=== PATIENT | female | born 1965 | race Caucasian/White ===

== ENCOUNTER → 2023-10-08 | Outpatient (CLI) | payer OTHER ==
[2023-10-08 11:08] VITALS: BP 162/103; PULSE 88; RESP 16; TEMP 99.1
--- NOTE | 2023-10-08 14:56 | P.PAINPG ---
PQRS Measure Charge Sheet Comment: HISTORY OF PRESENT ILLNESS: A 58 yr old female w [id number] at side as a referral from Dr Estrella presents today w severe and chronic R knee pain > 6 mo secondary to DJD for evaluation. Pt states pain level is provoked at 10 /10 in intensity, constant, localized in the R knee, sharp in character without shooting pain. Pain is provoked by walking. Pain is alleviated by PT x 6 wks which ended September 2023, physician guided exercises every other day starting this month, heat, ice, medications (Aleve), topical Voltaren gel, repositioning and rest. Pt is strongly against receiving injections for chondromalacia, only wants pain medications and states she occasionally uses cannabis. PMH: OA, Hypothyroid Disorder, MDD/ Anxiety/ Bipolar Disorder PSH: Section, Cholecystectomy, Hysterectomy, Ovarian Cystectomy, Tubal Ligation, Bladder Lift, L Knee Partial Arthroplasty, R Knee Arthroscopy SH: Daily tobacco use, No ETOH abuse, Cannabis use FH: Noncontributory All: See list Meds: See list REVIEW OF ORGAN SYSTEMS: CONSTITUTIONAL: No fevers or chills. No recent weight los s. NEUROLOGICAL: + numbness and tingling along the distal extremities. No seizure disorders or headaches. MUSCULOSKELETAL: + pain PSYCHIATRIC: Denies current depression or suicidal thoughts. Physical Examinations : Constitutional : Cooperative , not in acute distress . Neurologic : Cranial nerve II to XII intact. No focal neurological deficits. Psychiatric : alert & oriented x 3. Matching mood & appropriate affect. Judgment & insight intact. Musculoskeletal : Cervical Spine Motor strength in the deltoid and biceps: Normal right side. Normal Left side Motor strength biceps and the wrist ex tensors: Normal right side . Normal left side Motor strength in the triceps muscle: Normal right side. Normal left side Deep tendon reflexes: Normal at the biceps. Normal at Brachioradialis. Normal at triceps Vertebral body tenderness to deep palpation over Cervical facet loading test: positive bilaterally Spurling test: positive bilaterally Neck distraction test: positive bilaterally Viviana sign: positive bilaterally Lumbar spine +R knee lateral pt tenderness, no joint laxity Motor strength lower extremities ,thigh and legs 5/5 Right side , 5/5 Left side Deep tendon reflexes : Normal Knee Jerk. Normal Ankle Jerk Vertebral body tenderness over Osorio Test positive Lumbar facet Loading Test: positive Right / positive Left Range of motion of the lumbar spine Flexion 30 degrees, extension 10 degrees Straight Leg Raise test: Left/ Right positive at degrees Ofe test: positive right / positive left. Severe tenderness over the Sacroiliac joint on the Right / Left sides Gaenslen test: positive bilaterally Seated flexion test: positive bilaterally. Sacral spine : Severe tenderness over the Sacroiliac joint: right side / left side Range of motion: Flexion of the lumbar spine <60 degrees Range of motion: Extension of the lumbar spine <20 degrees Gaenslen's Test positive Ofe test: positive right side / left side Thigh Thrust Test Sacral Thrust Test Imaging: MRI noncontrast of the knee from 06/01/23 reviewed Assessment/ Plan : R knee chondromalacia, R knee partial medial meniscal tear, R small effusion of knee Recommendation of R intraarticular injection, though pt was disinterested. Advised pt stop using cannabis while on short course of [place] 5/325mg #15 NR Use, side effects adverse reactions, safe storage discussed. Pt wants to find another clinic that will have a narcotic agreement with her. All questions a nswered. I have spent greater than 30 minutes on patient care today. Dr Stanley was available by phone for the evaluation of this patient. The time was used to review the medical records including relevant urine studies and Prescription history (MAPs), review of the available imaging, evaluation and examination of the patient, coordination of care with the medical staff and if applicable referring physicians, as well as creation of the medical record - Pain Location Right Knee Non-Pharmacological Interventions: Heat, Ice, Inactivity, Physical Therapy, Position/Reposition Pharmacological Interventions: PRN Medication, Topical Medication PQRS Narrative: Smoking Status Current every day smoker Home Medications: Ambulatory Orders Albuterol Sulfate [Ventolin HFA] 1 - 2 puff INHALATION Q6H PRN 30 Days inhaler 02/26/14 [place]olic Acid 0.4 mg PO DAILY 03/04/14 Docusate [Colace] 100 mg PO DAILY 30 Days cap 03/09/14 Levothyroxine Sodium [Synthroid] 125 mcg PO DAILY@0630 30 Days tablet 03/09/14 [place] Carbonate 300 mg PO DAILY 30 Days cap 03/09/14 [place] Carbonate 600 mg PO HS 30 Days cap 03/09/14 Omeprazole [PriLOSEC] 20 mg PO AC-BRKFST 30 Days capsule. 03/09/14 Prazosin [Minipress] 1 mg PO HS 30 Days cap 03/09/14 Topiramate [Topamax] 100 mg PO BID 30 Days tab 03/09/14 clonazePAM [KlonoPIN] 1 mg PO BID 30 Days tab 03/09/14 risperiDONE [RisperDAL] 2 mg PO HS 30 Days tab 03/09/14 HYDROcodone/APAP 5-325MG [[place] 5-325] 1 tab PO Q4HR PRN 3 Days #15 tab 10/08/23 Controlled Substance Measures - Controlled Substance Measures Is patient prescribed a controlled substance at discharge?: Yes When asked, does pt state using other controlled substances?: No If prescribed controlled substance>3 days was MAPS reviewed?: Prescribed <3 Days
== END ==
LOC: PNWHC3 09:45
PROVIDERS: ATTEND Specialist
DX: S83.241A Other tear of medial meniscus, current injury, right knee, initial encounter (principal); M17.11 Unilateral primary osteoarthritis, right knee; G89.29 Other chronic pain; M94.261 Chondromalacia, right knee; M23.303 Other meniscus derangements, unspecified medial meniscus, right knee; F17.200 Nicotine dependence, unspecified, uncomplicated; Z88.6 Allergy status to analgesic agent; Z88.8 Allergy status to other drugs, medicaments and biological substances; Z88.5 Allergy status to narcotic agent; X58.XXXA Exposure to other specified factors, initial encounter
CPT/HCPCS: 99211

== ENCOUNTER 2024-03-11 07:12 | Emergency (ER) | payer OTHER ==
[2024-03-11 07:17] VITALS: RESP 18; TEMP 97.9
[2024-03-11] MEDS: HYDROmorphone 0.5 MG/0.5 ML SYRINGE IVP STA ×2 (07:44→07:52)
[2024-03-11] MEDS: SODIUM CHLORIDE 0.9% 1,000 ML IV STA (07:48)
[2024-03-11] MEDS: diphenhydrAMINE 50 MG/ML 1 ML VIAL IVP STA (07:49)
[2024-03-11] MEDS: SODIUM CHLORIDE 0.9% 500 ML 500 ML IV STA (07:49)
[2024-03-11 07:50] LABS: Basophils % (A) 0 %; Eosinophils # (A) 0.2 k/uL (0-0.7); Eosinophils % (A) 4 %; HCT 46.5 % (34.0-46.0); HGB 15.5 gm/dL (11.4-16.0); Lymphocytes # (A) 1.3 k/uL (1.0-4.8); Lymphocytes % (A) 25 %; MCH 33.3 pg (25.0-35.0); MCHC 33.2 g/dL (31.0-37.0); Monocytes # (A) 0.2 k/uL (0-1.0); Monocytes % (A) 4 %; Neutrophils # (A) 3.2 k/uL (1.3-7.7); Neutrophils % (A) 64 %; Platelet Count 225 k/uL (150-450); RBC 4.65 m/uL (3.80-5.40); RDW 12.3 % (11.5-15.5)
[2024-03-11] MEDS: METOCLOPRAMIDE 5 MG/ML 2 ML VIAL IVP STA (07:53)
[2024-03-11 08:04] LABS: ALT 26 U/L (4-34); AST 29 U/L (14-36); African American GFR (CKD) 88 (>60 ml/min/1.73 sqM); Alkaline Phosphatase 112 U/L (38-126); Anion Gap 7 mmol/L; Blood Urea Nitrogen 10 mg/dL (7-17); Calcium 9.5 mg/dL (8.4-10.2); Carbon Dioxide 23 mmol/L (22-30); Chloride 113 mmol/L (98-107); Glucose 112 mg/dL (74-99); Lipase 125 U/L (23-300); Magnesium 1.9 mg/dL (1.6-2.3); Non-African American GFR(CKD) 77 (>60 ml/min/1.73 sqM); Potassium 4.3 mmol/L (3.5-5.1); Sodium 143 mmol/L (137-145); Total Bilirubin 0.6 mg/dL (0.2-1.3); Total Protein 6.8 g/dL (6.3-8.2)
[2024-03-11 08:34] LABS: Appearance,Urine Clear (Clear); Bilirubin,Urine Negative (Negative); Blood,Urine Negative (Negative); Color,Urine Yellow; Glucose,Urine (UA) Negative (Negative); Ketones,Urine Negative (Negative); Leukocyte Esterase,Urine Negative (Negative); Nitrite,Urine Negative (Negative); Protein,Urine Negative (Negative); Specific Gravity,Urine 1.005 (1.001-1.035); Urobilinogen,Urine <2.0 mg/dL (<2.0)
--- NOTE | 2024-03-11 08:56 | ED ---
Abdominal Pain HPI - General Chief Complaint: Abdominal Pain Stated Complaint: Back Pain/Vomitting Time Seen by Provider: 03/11/24 07:23 Source: patient, family, RN notes reviewed Mode of arrival: wheelchair Limitations: no limitations - History of Present Illness Initial Comments: 58-year-old female presents emerged from chief complaint of right flank pain. Patient states it has been bothersome over the last 4 days she has had associated nausea vomiting. Patient had a prior cholecystectomy. Denies known fever reports had some chills. No chest pain no shortness of breath. Patient offers no other complaints. - Related Data Home Medications Medication Instructions Recorded Confirmed Folic Acid 0.4 mg PO DAILY 03/04/14 10/08/23 Previous Rx's Medication Instructions Recorded Albuterol Sulfate [Ventolin HFA] 1 - 2 puff INHALATION Q6H PRN 30 02/26/14 Days inhaler Docusate [Colace] 100 mg PO DAILY 30 Days cap 03/09/14 Levothyroxine Sodium [Synthroid] 125 mcg PO DAILY@0630 30 Days 03/09/14 tablet [place] Carbonate 300 mg PO DAILY 30 Days cap 03/09/14 [place] Carbonate 600 mg PO HS 30 Days cap 03/09/14 Omeprazole [PriLOSEC] 20 mg PO AC-BRKFST 30 Days 03/09/14 capsule. Prazosin [Minipress] 1 mg PO HS 30 Days cap 03/09/14 Topiramate [Topamax] 100 mg PO BID 30 Days tab 03/09/14 clonazePAM [KlonoPIN] 1 mg PO BID 30 Days tab 03/09/14 risperiDONE [RisperDAL] 2 mg PO HS 30 Days tab 03/09/14 HYDROcodone/APAP 5-325MG [[place] 1 tab PO Q4HR PRN 3 Days #15 tab 10/08/23 5-325] Famotidine [Pepcid] 20 mg PO BID #28 tablet 03/11/24 Metoclopramide [Reglan] 10 mg PO TID PRN #15 tab 03/11/24 Allergies Allergy/AdvReac Type Severity Reaction Status Date / Time ibuprofen AdvReac Unknown Verified 10/08/23 10:13 morphine AdvReac Rash/Hives Verified 03/11/24 07:16 ondansetron [From Zofran] AdvReac Rash/Hives Verified 03/11/24 07:16 pseudoephedrine HCl AdvReac Unknown Verified 10/08/23 10:13 [From Sudafed] tramadol HCl [From Ultram] AdvReac Unknown Verified 10/08/23 10:13 Review of Systems ROS Statement: Those systems with pertinent positive or pertinent negative responses have been documented in the HPI. ROS Other: All systems not noted in ROS Statement are negative. Past Medical History Past Medical History: Asthma, Musculoskeletal Disorder, Thyroid Disorder Additional Past Medical History / Comment(s): migraines, chronic back pain(DJD), history of seizures History of Any Multi-Drug Resistant Organisms: None Reported Past Surgical History: Section, Cholecystectomy, Hysterectomy, Tubal Ligation Past Anesthesia/Blood Transfusion Reactions: No Reported Reaction Past Psychological History: Anxiety, Bipolar, Depression Smoking Status: Current every day smoker Past Alcohol Use History: None Reported Past Drug Use History: None Reported General Exam Limitations: no limitations General appearance: alert, in no apparent distress Head exam: Present: atraumatic, normocephalic, normal inspection Eye exam: Present: normal appearance, PERRL, EOMI. Absent: scleral icterus, conjunctival injection, periorbital swelling ENT exam: Present: normal exam, normal oropharynx, mucous membranes moist Neck exam: Present: normal inspection, full ROM. Absent: tenderness, meningismus, lymphadenopathy Respiratory exam: Present: normal lung sounds bilaterally. Absent: respiratory distress, wheezes, rales, rhonchi, stridor Cardiovascular Exam: Present: regular rate, normal rhythm, normal heart sounds. Absent: systolic murmur, diastolic murmur, rubs, gallop, clicks GI/Abdominal exam: Present: soft, tenderness, normal bowel sounds. Absent: distended, guarding, rebound, rigid Back exam: Present: CVA tenderness (R). Absent: CVA tenderness (L) Neurological exam: Present: alert, oriented X3 Course Vital Signs 03/11/24 07:14 Temperature 97.9 F Pulse Rate 85 Respiratory 18 Rate Blood Pressure 167/89 O2 Sat by Pulse 96 Oximetry Medical Decision Making - Medical Decision Making Was pt. sent in by a medical professional or institution (, PA, [employer], urgent care, hospital, or fpc...) When possible be specific @ -No Did you speak to anyone other than the patient for history (EMS, parent, family, police, friend...)? What history was obtained from this source @ -No Did you review nursing and triage notes (agree or disagree)? Why? @ -I reviewed and agree with nursing and triage notes Were old charts reviewed (outside hosp., previous admission, EMS record, old EKG, old radiological studies, urgent care reports/EKG's, fpc records)? Report findings @ -No old charts were reviewed Differential Diagnosis (chest pain, altered mental status, abdominal pain women, abdominal pain men, vaginal bleeding, weakness, fever, dyspnea, syncope, headache, dizziness, GI bleed, back pain, seizure, CVA, palpatations, mental health, musculoskeletal)? @ -Differential Abdominal Pain Women: Appendicitis, Cholecystitis, diverticulosis, ischemic bowel, pancreatitis, hepatitis, UTI, gastroenteritis, AAA, incarcerated hernia, bowel obstruction, constipation, inflammatory bowel, hepatitis, peptic ulcer disease, splenic infarction, perforated viscus, vulvitis, ovarian torsion, PID, kidney stone, placenta abruption, this is not meant to be an all-inclusive list EKG interpreted by me (3pts min.). @ -None X-rays interpreted by me (1pt min.). @ -None done CT interpreted by me (1pt min.). @ -CT abdomen pelvis showing no acute intra-abdominal process there is a nonobstructing left 3 mm stone U/S interpreted by me (1pt. min.). @ -None done What testing was considered but not performed or refused? (CT, X-rays, U/S, labs)? Why? @ -None What meds were considered but not given or refused? Why? @ -None Did you discuss the management of the patient with other professionals (professionals i.e. , PA, [employer], lab, RT, psych nurse, social problems specialist, brick stacker, teacher, mobile patrol officer, cyanide case hardener)? Give summary @ -No Was smoking cessation discussed for >3mins.? @ -No Was critical care preformed (if so, how long)? @ -No Were there social determinants of health that impacted care today? How? (Homelessness, low income, unemployed, alcoholism, drug addiction, transportation, low edu. Level, literacy, decrease access to med. care, half-way, rehab)? @ -No Was there de-escalation of care discussed even if they declined (Discuss DNR or withdrawal of care, Hospice)? DNR status @ -No What co-morbidities impacted this encounter? (DM, HTN, Smoking, COPD, CAD, Cancer, CVA, ARF, Chemo, Hep., AIDS, mental health diagnosis, sleep apnea, morbid obesity)? @ -None Was patient admitted / discharged? Hospital course, mention meds given and route, prescriptions, significant lab abnormalities, going to OR and other pertinent info. @ -Discharge patient is greater than. IV fluids and antiemetics. Patient has no acute findings on laboratory studies or CT. Patient is discharged in stable condition return parameters julio. Undiagnosed new problem with uncertain prognosis? @ -No Drug Therapy requiring intensive monitoring for toxicity (Heparin, Nitro, Insuli n, Cardizem)? @ -No Were any procedures done? @ -No Diagnosis/symptom? @ -Flank pain, gastroenteritis Acute, or Chronic, or Acute on Chronic? @ -Acute Uncomplicated (without systemic symptoms) or Complicated (systemic symptoms)? @ -Uncomplicated Side effects of treatment? @ -No Exacerbation, Progression, or Severe Exacerbation? @ -No Poses a threat to life or bodily function? How? (Chest pain, [place], [place], pneumonia, PE, COPD, DKA, ARF, appy, cholecystitis, CVA, Diverticulitis, Homicidal, Suicidal, threat to staff... and all critical care pts) @ -No - Lab Data Result diagrams: 03/11/24 07:45 03/11/24 07:45 Lab Results 03/11/24 03/11/24 03/11/24 Range/Units 07:45 07:45 08:17 WBC 5.0 (3.8-10.6) k/uL RBC 4.65 (3.80-5.40) m/uL Hgb 15.5 (11.4-16.0) gm/dL Hct 46.5 H (34.0-46.0) % MCV 100.0 (80.0-100.0) fL MCH 33.3 (25.0-35.0) pg MCHC 33.2 (31.0-37.0) g/dL RDW 12.3 (11.5-15.5) % Plt Count 225 (150-450) k/uL MPV 7.0 Neutrophils % 64 % Lymphocytes % 25 % Monocytes % 4 % Eosinophils % 4 % Basophils % 0 % Neutrophils # 3.2 (1.3-7.7) k/uL Lymphocytes # 1.3 (1.0-4.8) k/uL Monocytes # 0.2 (0-1.0) k/uL Eosinophils # 0.2 (0-0.7) k/uL Basophils # 0.0 (0-0.2) k/uL Sodium 143 (137-145) mmol/L Potassium 4.3 (3.5-5.1) mmol/L Chloride 113 H (98-107) mmol/L Carbon Dioxide 23 (22-30) mmol/L Anion Gap 7 mmol/L BUN 10 (7-17) mg/dL Creatinine 0.85 (0.52-1.04) mg/dL Est GFR (CKD-EPI)AfAm 88 (>60 ml/min/1.73 sqM) Est GFR (CKD-EPI)NonAf 77 (>60 ml/min/1.73 sqM) Glucose 112 H (74-99) mg/dL Calcium 9.5 (8.4-10.2) mg/dL Magnesium 1.9 (1.6-2.3) mg/dL Total Bilirubin 0.6 (0.2-1.3) mg/dL AST 29 (14-36) U/L ALT 26 (4-34) U/L Alkaline Phosphatase 112 (38-126) U/L Total Protein 6.8 (6.3-8.2) g/dL Albumin 4.0 (3.5-5.0) g/dL Lipase 125 (23-300) U/L Urine Color Yellow Urine Appearance Clear (Clear) Urine pH 7.0 (5.0-8.0) Ur Specific [place] 1.005 (1.001-1.035) Urine Protein Negative (Negative) Urine Glucose (UA) Negative (Negative) Urine Ketones Negative (Negative) Urine Blood Negative (Negative) Urine Nitrite Negative (Negative) Urine Bilirubin Negative (Negative) Urine Urobilinogen <2.0 (<2.0) mg/dL Ur Leukocyte Esterase Negative (Negative) Disposition Clinical Impression: Flank pain, Gastroenteritis Disposition: HOME SELF-CARE Condition: Stable Instructions (If sedation given, give patient instructions): Flank Pain (ED) Additional Instructions: Please return to the Emergency Department if symptoms worsen or any other concerns. Prescriptions: Famotidine [Pepcid] 20 mg PO BID #28 tablet Metoclopramide [Reglan] 10 mg PO TID PRN #15 tab PRN Reason: Nausea Is patient prescribed a controlled substance at d/c from ED?: No Referrals: Becky Junior DO [Primary Care Provider] - 1-2 days Time of Disposition: 09:40
--- NOTE | 2024-03-11 09:35 | CT ---
EXAMINATION TYPE: CT abdomen pelvis w con CT DLP: 1340.2 mGycm, Automated exposure control for dose reduction was used. DATE OF EXAM: 03/11/2024 9:13 AM COMPARISON: 05/07/2012 CLINICAL INDICATION: Female, 58 years old with history of abd pain; Bilateral flank pain, nausea and vomiting TECHNIQUE: Axial CT abdomen pelvis w con;Sagittal and coronal reformats were created on a separate w orkstation. Contrast used:100 mL of Isovue 300 with IV Contrast, (none if empty) Oral contrast used: without Oral Contrast (none if empty) FINDINGS: LOWER CHEST: Unremarkable ABDOMEN LIVER: Unremarkable GALLBLADDER AND BILE DUCTS: The gallbladder is surgically absent. PANCREAS: Unremarkable. SPLEEN: Unremarkable. ADRENAL GLANDS: Unremarkable. KIDNEYS AND URETERS: No evidence for hydronephrosis. Nonobstructing 3 mm left calculus. PELVIS BLADDER: Unremarkable REPRODUCTIVE: The uterus is surgically absent. ABDOMEN & PELVIS STOMACH AND BOWEL: No evidence of bowel obstruction. PERITONEUM/RETROPERITONEUM: No evidence of pneumoperitoneum or free fluid. VASCULATURE: No evidence of aortic aneurysm. MUSCULOSKELETAL: No acute osseous abnormalities LYMPH NODES: No gross evidence for lymphadenopathy. SOFT TISSUE/ABDOMINAL WALL: Unremarkable IMPRESSION: No evidence for acute abdominal process. No evidence for obstructive uropathy. Nonobstructing left 3 mm renal calculus. [facility], , 03/11/2024 9:33 AM
[2024-03-11 09:55] VITALS: BP 154/78; PULSE 67
== END 2024-03-11 09:54 | disposition home or self-care (01) ==
LOC: EC 07:12
DX: K52.9 Noninfective gastroenteritis and colitis, unspecified (principal); N20.0 Calculus of kidney; F17.200 Nicotine dependence, unspecified, uncomplicated; Z88.5 Allergy status to narcotic agent; Z88.6 Allergy status to analgesic agent; Z88.8 Allergy status to other drugs, medicaments and biological substances
CPT/HCPCS: 36415; 80053; 83690; 83735; 85025; 81003; 74177; 99284; 96374; 96375 ×2; 96361; J1200; J2765; J1171; Q9967